=== PATIENT | male | born 1960 | race Hispanic/Latino ===

== ENCOUNTER 2018-09-12 14:01 | Observation (INO) | payer SELFPAY ==
[2018-09-12] MEDS ORDERED: Morphine 4 MG/ML VIAL ONE ×2 (14:29→14:40)
[2018-09-12] MEDS ORDERED: Ondansetron PF 4 MG/2 ML Vial ONE ×2 (14:29→15:04)
[2018-09-12] MEDS ORDERED: PROPOFOL 200 MG/20 ML VIAL ONE (15:04)
[2018-09-12] MEDS ORDERED: PHENYLEPHRINE-NS 100 MCG/ML 10 ML SYRINGE ONE (15:04)
[2018-09-12] MEDS ORDERED: Dexamethasone 20 MG/5 ML VIAL ONE ×2 (15:04)
[2018-09-12] MEDS ORDERED: Succinylcholine Chloride 20 MG/ML 10 ml SYRINGE FS ONE (15:04)
[2018-09-12] MEDS ORDERED: Ketorolac Tromethamine 30 MG/ML VIAL ONE (15:04)
[2018-09-12] MEDS ORDERED: Lidocaine 1% PF 5 ML VIAL ONE (15:04)
[2018-09-12] MEDS ORDERED: Glycopyrrolate 0.2 MG/ML 5 ML SYRINGE ONE (15:04)
[2018-09-12] MEDS ORDERED: ePHEDrine 50 MG/ML VIAL ONE (15:04)
[2018-09-12] MEDS ORDERED: Rocuronium Bromide 10 MG/ML (10ML VIAL) ONE (15:04)
[2018-09-12] MEDS ORDERED: Lidocaine 2% w/Epinephrine 1:200K 20 ML VIAL ONE (16:40)
[2018-09-12] MEDS ORDERED: Sodium Chloride 0.9% 0 ML ONE (16:40)
[2018-09-12] MEDS ORDERED: Bacitracin Zinc Ointment 30 gm TUBE ONE (16:43)
[2018-09-12] MEDS ORDERED: Chlorhexidine Gluconate 15 ML UDCUP SSP SCH (16:45)
[2018-09-12] MEDS ORDERED: Ampicillin/Sulbactam 3 GM in Sodium Chloride 0.9% 100 ML IVPB SCH (16:45)
[2018-09-12] MEDS ORDERED: Sodium Chloride 0.9% 20 ML ONE (17:27)
[2018-09-12] MEDS ORDERED: Fentanyl 100 MCG/2 ML VIAL ONE (18:04)
[2018-09-12] MEDS ORDERED: Meperidine HCl/PF 25 MG/ML VIAL ONE (20:26)
[2018-09-12] MEDS ORDERED: Meperidine HCl/PF 25 MG/ML VIAL SLOW IVP PRN (20:30)
[2018-09-12] MEDS ORDERED: Promethazine HCl 25 MG/ML VIAL IM PRN (20:30)
[2018-09-12] MEDS ORDERED: Ondansetron HCl/PF 4 MG/2 ML Vial IVP PRN (20:30)
[2018-09-12] MEDS ORDERED: Ondansetron ODT 4 MG TAB PO PRN (20:39)
[2018-09-12] MEDS ORDERED: HYDROcodone/Acetaminophen 5/325 mg Tablet PO PRN (20:39)
[2018-09-12] MEDS ORDERED: Ondansetron PF 4 MG/2 ML Vial IVP PRN (20:39)
[2018-09-12] MEDS ORDERED: Sodium Chloride 0.9% 1,000 ML IV SCH (20:45)
[2018-09-12] MEDS ORDERED: Ketorolac Tromethamine 30 MG/ML VIAL IVP PRN (20:54)
[2018-09-12] MEDS ORDERED: Morphine 2 MG/ML SYRINGE SLOW IVP PRN (20:55)
[2018-09-13] VITALS: BMI 29.6
[2018-09-13] MEDS: Ampicillin/Sulbactam 3 GM in Sodium Chloride 0.9% 100 ML IVPB SCH ×2 (01:08→06:21)
[2018-09-13 07:54] VITALS: BP 124/71; TEMP 97.9
[2018-09-13] MEDS ORDERED: Bacitracin 1 PK TOP SCH (08:15)
--- NOTE | 2018-09-15 14:30 | OP ---
DATE OF PROCEDURE: 09/12/2018 PREOPERATIVE DIAGNOSES: 1. Deep rhczfxr-jiy-pvtfymz complex laceration of the nose. 2. Foreign body of nasal cavity. POSTOPERATIVE DIAGNOSES: 1. Deep ygjdsyx-lkw-wtixvxw complex laceration of the nose. 2. Foreign body of nasal cavity. PROCEDURES PERFORMED: 1. Primary repair and reconstruction of nasal cartilage with primary skin closure. 2. Exploratory surgery and removal of foreign body. CAMPUS RECRUITING INTERN: None. ESTIMATED BLOOD LOSS: 100 mL. URINE OUTPUT: None. No Francois. IV FLUIDS: 1800 mL of isotonic crystalloid. FINDINGS: 1. An 8-cm deep laceration extending through skin, upper lateral and lower cartilage, septum through right nasal bone, and comminuted 5 x 8 mm opening to the right frontal sinus. 2. Severe comminution of the upper lateral and lower lateral cartilage. 3. Septal cartilage with avulsion of a portion of the left septal mucosa. 4. A 5 x 9 mm loss of the right nasal bone secondary to mechanism of injury. 5. There was no septal hematoma appreciated. 6. Nasofrontal outflow tract to the right frontal sinus appeared patent. 7. A 2 x 2 cm circular foreign body removed from superior nasal fossa. 8. No cerebrospinal fluid appreciated. 9. Dirty, contaminated wound required extensive irrigation and debridement. COMPLICATIONS: None. DISPOSITION: PACU. HARDWARE: None. COMMENTS: No surgical or anesthesia complications. INDICATIONS FOR PROCEDURE: The patient initially presented to [facility] Emergency Department after being transferred from [facility] with complex nasal laceration secondary to table saw injury. After clinical assessment, it was noted that the patient had an 8 cm linear japdbee-aao-xsurfiz complex nasal laceration extending from 1 cm superior to mid radix down to midline of nasal tip. Laceration extending [id number]-oaavrbv right nasal bone to include 5 x 8 mm area of the right frontal sinus comminution of the anterior table of a small portion. The patient with severe comminution of upper and lower lateral cartilage, septal cartilage, and nasal bone with a 2 x 2 cm metallic foreign body consistent with table saw fragment. Due to the extensive nature of the injury, the surgical procedure recommended to address the patient's injury was exploratory surgery to remove foreign body, wound washout and irrigation, reconstruction of the nasal cartilage, and primary soft tissue closure. Risks, benefits, alternatives, and indications about the procedure were discussed with the patient. He had the opportunity to ask questions and have them answered via his family wildlife officer. He then elected to proceed with the recommended procedure. DESCRIPTION OF PROCEDURE: The patient was then transferred to the operating room C and placed on the operating room table in the supine position. Standard monitors and preoxygenation were applied. The patient was noted to be stable and was induced into a state of general anesthesia via an intravenous route. The patient had ocular lubricant placed, and eyes were protected by taping the eyelids shut with Transpore Tape. He was intubated via nasal endotracheal tube in the right nare. After confirmation by the Anesthesia Team that the tube was properly positioned and was secured, the patient was placed in a slight reverse Trendelenburg position. A Francois catheter was not placed. He was then prepped and draped in a standard sterile fashion. Local anesthesia was infiltrated along the infraorbital nerves position bilateral along the nasal subcutaneous laceration site. A total of 6 mL of 2% lidocaine with 1:100,000 epinephrine was injected. We then directed our attention to the nasal laceration with appropriate rectractor in position, noted severe comminution, fragmented right nasal bone, upper and lower lateral cartilage, and septal cartilage. Foreign body was identified and removed. Hemostasis was confirmed and achieved with bipolar set at 20/20 blend. Copious saline irrigation 1 L mixed with 50,000 units of bacitracin. Attempts to save fragmented cartilage and bone that was attached to periosteum. All loose free fragments of nasal bone and cartilage were removed due to dirty wound. Fragments were removed due to no periosteal attachment or blood supply. Judicious attempts to save and minimize any stripping of the periosteum or perichondrium were performed. Next, identified fragmented septal cartilage and secured in a pretraumatic position using 5-0 nylon, reconstructed intermediate and medial crura of the lower lateral cartilage using 5-0 nylon interrupted suture times multiple sutures. Attempts to minimize changing intranasal valves as recreated septal attachments to the upper lateral cartilage. Next, evaluated comminution of the right frontal sinus, 5 x 8 mm opening dehiscence into the sinus noted. Copious irrigation was performed. Nasofrontal outflow tract was patent. Portion of the avulsion comminuted right nasal bone, 5 x 9 mm segment. No orbital or ocular injury. No evidence of cerebrospinal fluid leak noted. Next, attempts to stabilize left nasal bone by securing to the right nasal bone using bone tunnels with a 2-0 Prolene suture. Next, once cartilage and nasal bone were secured and stable, closed the skin incision with multiple deep and skin layers with 4-0 and 5-0 Vicryl deep interrupted sutures and skin incisions using 5-0 chromic interrupted sutures. No septal hematoma noted. Attempts to resuspend perichondrium using 5 -0 plain gut sutures. Next, placed a Michel splint covered in bacitracin and secured via nasal membranous septum. Skin incision was lathered with bacitracin ointment. I elected to not place Valerio splint due to conserved and compromising, but despite of the comminuted segments along the incision line, Adel splint would provide support for nasal bone segment. At this point, procedure was deemed complete. The patient's eyes were irrigated with balanced salt solution. The orogastric tube was placed to suction the contents of the stomach. The patient was extubated, and spontaneous respirations were intact. The patient was transferred to the PACU with no complications. Job ID: [id number] [facility]
== END 2018-09-13 10:48 | disposition home or self-care (01) ==
LOC: ERS 14:01 → SDC/OP 17:00 → SURG B 20:43
PROVIDERS: ADMIT Oral & Maxillofacial Surgery; ATTEND Oral & Maxillofacial Surgery
PROC: 09QKXZZ Repair Nasal Mucosa and Soft Tissue, External Approach (ICD-10-PCS; principal; 2018-09-13)
DX: S01.22XA Laceration with foreign body of nose, initial encounter (principal); G40.909 Epilepsy, unspecified, not intractable, without status epilepticus; W29.8XXA Contact with other powered hand tools and household machinery, initial encounter; Z79.899 Other long term (current) drug therapy
CPT/HCPCS: 96361; 96365; 96374; 96375; G0378; G0390; J0131; J0295; J1100; J1885; J2001; J2175; J2270; J2405; J2704; J3010; J3490